=== PATIENT | female | born 1945 | race Caucasian/White ===

== ENCOUNTER → 2017-04-14 | Outpatient (CLI) | payer MEDICARE | LOC: KOH-I 14:15 | DX: R05 Cough (principal); K44.9 Diaphragmatic hernia without obstruction or gangrene | CPT/HCPCS: 71020 ==

== ENCOUNTER 2021-06-11 23:29 | Inpatient (IN) | payer MEDICARE ==
[~2021-06-11] VITALS: Ht 170.2 cm; Wt 70.8 kg
[~2021-06-11 23:29] MED LIST: ALDACTONE 25MG25 MG PO; ALEVE220 M1 PO; ARTIFICIAL TEAR15 ML EYEBOTH; ASPIRIN EC81 MG PO; ATORVASTATIN CA20 MG PO; ENTRESTO 49 MG1 EACH PO; FUROSEMIDE PO; KEFLEX CAP 500500 MG PO; LASIX TAB 20 MG20 MG PO; LISINOPRIL5 MG PO; METOPROLOL SUCC25 MG PO
[2021-06-12 00:06] LABS: HEMOGLOBIN 13.5 gm/dl (12.3-15.3); RED BLOOD COUNT 4.38 M/UL (4.00-5.10); WHITE BLOOD COUNT 6.8 K/UL (4.5-11.0)
[2021-06-12 00:24] LABS: BUN/CREATININE RATIO 12 (0-10)
--- NOTE | 2021-06-12 09:45 | NUR ---
0930- NOTIFIED CARDIOLOGY OF LOW BP 78/42. PATEINT ASYMPTOMATIC ON FLOOR TO SEE PATIENT AT THIS TIME. NEW ORDERS NOTED. WILL MONITOR.
--- NOTE | 2021-06-12 09:46 | NUR ---
0932- ATTEMPTED TO NOTIFIY DR. STRICKLAND OF HYPOTENSION. NO ANSWER AT THIS TIME.
--- NOTE | 2021-06-12 09:53 | NUR ---
0952- NOTIFIED DR STRICKLAND OF HYPOTENSION. CONTINUE WITH NS BOLUS. WILL CONTINUE TO MONITOR.
[2021-06-12 11:43] LABS: WHITE BLOOD COUNT 5.4 K/UL (4.5-11.0)
[2021-06-12 11:47] LABS: HEMOGLOBIN 11.4 gm/dl (12.3-15.3); RED BLOOD COUNT 3.79 M/UL (4.00-5.10)
[2021-06-13 01:01] LABS: HEMOGLOBIN 11.7 gm/dl (12.3-15.3); RED BLOOD COUNT 3.81 M/UL (4.00-5.10); WHITE BLOOD COUNT 4.7 K/UL (4.5-11.0)
[2021-06-14 03:26] LABS: HEMOGLOBIN 12.1 gm/dl (12.3-15.3); RED BLOOD COUNT 3.99 M/UL (4.00-5.10); WHITE BLOOD COUNT 5.1 K/UL (4.5-11.0)
== END 2021-06-14 14:31 | disposition home or self-care (01) | DRG 682 ==
LOC: ER1 23:29 → CDU 06-12 01:13 → MED SURG 4 06-12 01:13
PROVIDERS: Internal Medicine; Internal Medicine Interventional Cardiology; Physician Assistant; ADMIT Internal Medicine
DX: N17.9 Acute kidney failure, unspecified (principal); I21.A1 Myocardial infarction type 2; I50.22 Chronic systolic (congestive) heart failure; I42.9 Cardiomyopathy, unspecified; N39.0 Urinary tract infection, site not specified; I47.1 Supraventricular tachycardia; E86.0 Dehydration; I11.0 Hypertensive heart disease with heart failure; Z20.822 Contact with and (suspected) exposure to COVID-19; I95.9 Hypotension, unspecified; E78.5 Hyperlipidemia, unspecified; I08.2 Rheumatic disorders of both aortic and tricuspid valves; E11.9 Type 2 diabetes mellitus without complications; M81.0 Age-related osteoporosis without current pathological fracture; R07.89 Other chest pain; G47.33 Obstructive sleep apnea (adult) (pediatric); I27.20 Pulmonary hypertension, unspecified; I25.10 Atherosclerotic heart disease of native coronary artery without angina pectoris; Z98.51 Tubal ligation status; Z89.022 Acquired absence of left finger(s); Z79.82 Long term (current) use of aspirin; Z82.49 Family history of ischemic heart disease and other diseases of the circulatory system; Z81.8 Family history of other mental and behavioral disorders; Z98.890 Other specified postprocedural states; Z98.1 Arthrodesis status; Z95.1 Presence of aortocoronary bypass graft; Z79.899 Other long term (current) drug therapy
CPT/HCPCS: ECHO; 36415; 71045; 78452; 80048; 80053; 81001; 82436; 82550; 82553; 83036; 83605; 83735; 83874; 83880; 84133; 84300; 84439; 84443; 84484; 85025; 85027; 85379; 85610; 85730; 86140; 87040; 87086; 89050; 93005; 93017; 93306; 96374; 96375; 96376; 99285; A9502; G0378; J0696; J1644; J2785; J7030; J7040; U0002